=== PATIENT | female | born 1995 | race Caucasian/White ===

== ENCOUNTER → 2020-03-09 | Outpatient (CLI) | payer OTHER ==
[~2020-03-09] MED LIST: PRENTAB9 PO
[2020-04-09 07:14] LABS: HEMATOCRIT 38.1 % (36.0-47.0); HEMOGLOBIN 12.7 g/dl (12.0-15.5); MEAN CORPUSCULAR HEMOGLOBIN 30.8 pg (27.0-33.0); MEAN CORPUSCULAR HGB CONC 33.3 g/dl (32.0-36.5); MEAN CORPUSCULAR VOLUME 92.5 fl (80.0-96.0); PLATELET COUNT, AUTOMATED 220 10^3/uL (150-450); RED BLOOD COUNT 4.12 10^6/uL (4.00-5.40); WHITE BLOOD COUNT 11.3 10^3/uL (4.0-10.0)
== END ==
LOC: M LAB 09:58
PROVIDERS: ATTEND Obstetrics & Gynecology
DX: Z34.83 Encounter for supervision of other normal pregnancy, third trimester (principal); Z3A.00 Weeks of gestation of pregnancy not specified

== ENCOUNTER 2020-05-11 03:31 | Inpatient (IN) | payer OTHER ==
[~2020-05-11] VITALS: Ht 167.6 cm; Wt 78.1 kg
[2020-05-11] VITALS (9 sets, daily range): BP systolic 110–176; BP diastolic 55–95
[2020-05-11] MEDS ORDERED: PRENTAB9 PO (04:39)
[2020-05-11] MEDS ORDERED: LR 300 ML IV ONE (04:45)
[2020-05-11 05:17] LABS: HEMATOCRIT 38.8 % (36.0-47.0); HEMOGLOBIN 12.7 g/dl (12.0-15.5); MEAN CORPUSCULAR HEMOGLOBIN 29.7 pg (27.0-33.0); MEAN CORPUSCULAR HGB CONC 32.7 g/dl (32.0-36.5); MEAN CORPUSCULAR VOLUME 90.7 fl (80.0-96.0); PLATELET COUNT, AUTOMATED 204 10^3/uL (150-450); RED BLOOD COUNT 4.28 10^6/uL (4.00-5.40); WHITE BLOOD COUNT 12.9 10^3/uL (4.0-10.0)
[2020-05-11 05:43] LABS: ALT/SGPT 19 U/L (12-78); BILIRUBIN,TOTAL 0.3 MG/DL (0.2-1.0); CREATININE FOR GFR 0.78 MG/DL (0.55-1.30); GLOMERULAR FILTRATION RATE > 60.0 (>60); LDH LACTATE DEHYDROGENASE 228 U/L (84-246); URIC ACID 4.9 MG/DL (2.6-6.0)
[2020-05-11 06:31] LABS: TOTAL PROTEIN,RANDOM URINE 21.2 MG/DL (0.0-12.0)
[2020-05-11] MEDS ORDERED: OXYTOCIN 30 UNITS IN 0.9% NaCl 500ML IV BAG (J2590) As Ordered ONE (06:57)
[2020-05-11] MEDS ORDERED: OXYTOCIN DRIP 30 UNITS in IV 1 EA IV SCH (07:20)
[2020-05-11] MEDS ORDERED: ACETAMINOPHEN 500 MG TAB PO PRN (07:30)
[2020-05-11] MEDS ORDERED: RHOGAM 300 MCG (1500 IU) INJ (J2790) IM SCH (07:30)
[2020-05-11] MEDS ORDERED: ACETAMINOPHEN TAB 650MG DOSE (2X325MG) PO PRN (07:30)
[2020-05-11] MEDS ORDERED: IBUPROFEN 800 MG TAB PO PRN (07:30)
[2020-05-11] MEDS ORDERED: METHYLERGONOVINE MALEATE 0.2 MG TAB PO PRN (07:30)
[2020-05-11] MEDS ORDERED: DIBUCAINE 1% OINTMENT 30GM TOP PRN (07:30)
[2020-05-11] MEDS ORDERED: MEASLES,MUMPS,RUBELLA VACCINE INJ (MMR-II) (90707) SC SCH (07:30)
[2020-05-11] MEDS ORDERED: DOCUSATE SODIUM 100 MG CAP PO PRN (07:30)
[2020-05-11] MEDS ORDERED: IBUPROFEN 600MG TAB PO PRN (07:30)
[2020-05-11] MEDS: PRENATAL VITAMINS CHEWABLE TABLET PO SCH (09:00)
[2020-05-11 10:59] LABS: HEPATITIS B SURFACE ANTIGEN NEGATIVE (NEGATIVE)
[2020-05-12 06:00] VITALS: BP 100/60
[2020-05-12] MEDS: PRENATAL VITAMINS CHEWABLE TABLET PO SCH (08:28)
[2020-05-12] MEDS ORDERED: BOOSTRIX/ADACEL VACCINE (DIPHTH/PERTUSS/ACELL/TETANUS) 0.5ML SYR IM ONE (17:00)
--- NOTE | 2020-05-15 13:46 | HPE ---
DATE OF ADMISSION: 05/11/2020 HISTORY OF PRESENT ILLNESS: The patient is a 24-year-old female 2, para 1-0-0-1, who was admitted at 38 4/7 weeks gestation after presenting with the complaint of lower abdominal pain. She was found to have elevated blood pressure of 170/95 while in labor and delivery. At this point, the decision was made to admit the patient to rule out preeclampsia and also early labor. She denies any headache. No blurred vision. No epigastric pain. Her record was reviewed, which was essentially unremarkable. LABORATORY DATA: Blood type O positive. Rubella immune. Hepatitis negative. HIV negative. GC and chlamydia negative. One hour sugar testing was within normal limits. GBS negative. PAST MEDICAL HISTORY: Denies. PAST SURGICAL HISTORY: Denies. SOCIAL HISTORY: She denies any alcohol, drug, or cigarettes smoking. REVIEW OF SYSTEMS: Unremarkable. MEDICATIONS: vitamin. ALLERGIES: No known drug allergies. PHYSICAL EXAMINATION ON ADMISSION: HEENT: Grossly within normal limits. ABDOMEN: Soft, nontender, and nondistended. EXTREMITIES: No clubbing, cyanosis, or edema. PELVIC: Vaginal exam done by RN, 2-3 cm dilated, 70% effaced, fetus at -3 station in vertex position. Tracings reviewed. Category 1 tracing with irregular contractions. ASSESSMENT: 1. Intrauterine at 38 and 4/7 weeks gestation, cannot rule out labor. 2. Elevated blood pressure, rule out preeclampsia. PLAN: Admit the patient to labor and delivery. Routine labs sent, as well as pre-eclampsia lab awaiting result. Patient counseled. GÓMEZ
--- NOTE | 2020-05-15 13:50 | DN ---
DATE OF DELIVERY: 05/11/2020. Alma Rosa is a 24-year-old female 2, para 1, 0, 0, 1, who was admitted at 38 weeks gestation with elevated blood pressure and contractions, so rule out preeclampsia, and labor. I was called to the area where the patient was, complaining of increased contractions and bloody show. Upon my arrival, she was found to be fully dilated. Artificial rupture of membranes was performed, which showed clear fluid. She then pushed and delivered a live male infant after 3-4 pushes. Apgars 8 and 10, weight 3228 grams. Placenta delivered spontaneously intact, three vessel cord. First-degree midline perineal laceration noted, which was repaired using 2-0 Chromic. Estimated blood loss 300 cc. Both mother and baby in stable condition. [facility]
== END 2020-05-12 18:00 | disposition home or self-care (01) | DRG 807 ==
LOC: M LDO 03:31 → M LDI 06:56 → M OBS 10:06
PROVIDERS: ADMIT Obstetrics & Gynecology; ATTEND Obstetrics & Gynecology
PROC: 10E0XZZ Delivery of Products of Conception, External Approach (ICD-10-PCS; principal; 2020-05-11)
PROC: 10907ZC Drainage of Amniotic Fluid, Therapeutic from Products of Conception, Via Natural or Artificial Opening (ICD-10-PCS; 2020-05-11)
PROC: 0HQ9XZZ Repair Perineum Skin, External Approach (ICD-10-PCS; 2020-05-11)
DX: O70.0 First degree perineal laceration during delivery (principal); Z37.0 Single live birth; Z3A.38 38 weeks gestation of pregnancy